=== PATIENT | female | born 1960 | race Caucasian/White ===

== ENCOUNTER 2017-08-06 13:51 | Emergency (ER) | payer MEDICAID, OTHER ==
[2017-08-06 16:34] LABS: ADD MAN DIFF? NO
[2017-08-06 16:36] LABS: BASOPHIL # 0.1 10^3/ul (0.0-0.1); BASOPHILS % 0.6 % (0.0-2.0); EOSINOPHILS # 0.5 10^3/ul (0.0-0.5); HEMATOCRIT 44.3 % (37.0-47.0); HEMOGLOBIN 14.9 g/dl (12.0-16.0); LYMPHOCYTES # 2.6 10^3/ul (0.8-2.9); LYMPHOCYTES % 32.9 % (15.0-51.0); MEAN CORPUSCULAR HEMOGLOBIN 28.4 pg (29.0-33.0); MEAN CORPUSCULAR HGB CONC 33.6 g/dl (32.0-37.0); MEAN CORPUSCULAR VOLUME 84.5 fl (82.0-101.0); MEAN PLATELET VOLUME 11.6 fl (7.4-10.4); MONOCYTE # 0.5 10^3/ul (0.3-0.9); MONOCYTES % 5.7 % (0.0-11.0); NEUTROPHIL # 4.3 10^3/ul (1.6-7.5); NEUTROPHILS % 54.4 % (39.0-77.0); PLATELET COUNT 250 10^3/UL (140-415); RED BLOOD COUNT 5.24 10^6/ul (4.20-5.40); RED CELL DISTRIBUTION WIDTH 12.4 % (11.5-14.5)
[2017-08-06 16:36] LABS: WHITE BLOOD COUNT 7.9 10^3/ul (4.8-10.8)
[2017-08-06 16:39] LABS: ADD UMIC YES; UR AMORPHOUS CRYSTAL FEW /HPF (NONE SEEN); UR ASCORBIC ACID 20 mg/dL (NEGATIVE); UR BILIRUBIN (Dip) NEGATIVE (NEGATIVE); UR BLOOD (Dip) NEGATIVE (NEGATIVE); UR CLARITY CLOUDY (CLEAR); UR COLOR YELLOW (YELLOW); UR GLUCOSE (Dip) NEGATIVE (NEGATIVE); UR KETONES (Dip) NEGATIVE (NEGATIVE); UR LEUKOCYTE ESTERASE (Dip) NEGATIVE Leu/ul (NEGATIVE); UR NITRITE (Dip) NEGATIVE (NEGATIVE); UR RBC 2 /HPF (0-5); UR SPECIFIC GRAVITY (Dip) 1.019 (1.003-1.030); UR SQUAMOUS EPITHELIAL CELL FEW /HPF (FEW); UR TOTAL PROTEIN (Dip) NEGATIVE (NEGATIVE); UR UROBILINOGEN (Dip) NEGATIVE (NEGATIVE); UR WBC 2 /HPF (0-5)
[2017-08-06 16:55] LABS: ALANINE AMINOTRANSFERASE 28 IU/L (13-69); ALBUMIN 4.4 g/dl (3.3-4.9); ALBUMIN/GLOBULIN RATIO 1.33; ALKALINE PHOSPHATASE 106 IU/L (42-121); ANION GAP 16 (8-16); ASPARTATE AMINO TRANSFERASE 24 IU/L (15-46); BILIRUBIN,INDIRECT 0.3 mg/dl (0-1.1); BILIRUBIN,TOTAL 0.3 mg/dl (0.2-1.3); BLOOD UREA NITROGEN 19 mg/dl (7-20); CALCIUM 9.2 mg/dl (8.4-10.2); CARBON DIOXIDE 27 mmol/L (21-31); CHLORIDE 107 mmol/L (97-110); CREATININE 0.59 mg/dl (0.44-1.00); GLUCOSE 95 mg/dl (70-220); LIPASE 206 U/L (23-300); POTASSIUM 4.1 mmol/L (3.5-5.1); SODIUM 146 mmol/L (135-144); TOTAL PROTEIN 7.7 g/dl (6.1-8.1)
[2017-08-06 17:07] LABS: TROPONIN-I < 0.012 ng/ml (0.000-0.120)
[2017-08-06] MEDS: ONDANSETRON 4 MG INJ IV (17:33)
[2017-08-06] MEDS: LIDOCAINE/MYLANTA 40 ML BTL PO (17:33)
[2017-08-06] MEDS: FAMOTIDINE 20 MG INJ IV (17:33)
[2017-08-06] MEDS: KETOROLAC 15 MG INJ IV (17:34)
== END 2017-08-06 19:25 | disposition home or self-care (01) ==
LOC: E/R 13:51
DX: R10.13 Epigastric pain (principal); M54.5 Low back pain
CPT/HCPCS: 36415; 71045; 76700; 80053; 81001; 83690; 84484; 85025; 93005; 96374; 96375; 99285-25

== ENCOUNTER 2017-10-28 15:29 | Emergency (ER) | payer OTHER, MEDICAID | END 2017-10-28 22:51 | disposition home or self-care (01) | LOC: FTE 15:29 | DX: S80.862A Insect bite (nonvenomous), left lower leg, initial encounter (principal); W57.XXXA Bitten or stung by nonvenomous insect and other nonvenomous arthropods, initial encounter; Y92.9 Unspecified place or not applicable | CPT/HCPCS: 99283 ==